=== PATIENT | female | born 1955 | race African-American/Black ===

== ENCOUNTER 2020-07-03 11:38 | Emergency (ER) | payer OTHER ==
[2020-07-03 11:58] VITALS: BP 127/79; PULSE 71; TEMP 98.1; BMI 28.0
[2020-07-03] MEDS ORDERED: ACETAMINOPHEN 500 MG TABLET (FP) PO ONE (12:28)
[2020-07-03] MEDS ORDERED: ACETAMINOPHEN 500 MG TABLET (FP) ONE (12:33)
== END 2020-07-03 14:27 | disposition home or self-care (01) ==
LOC: JERFT 11:38
DX: S92.902A Unspecified fracture of left foot, initial encounter for closed fracture (principal)
CPT/HCPCS: 73562-TC-RT-FY; 73610-TC-LT-FY; 73630-TC-LT; 99284-25